=== PATIENT | female | born 1985 ===

== ENCOUNTER 2024-08-11 13:24 | Outpatient (REF) | payer MEDICAID, OTHER, SELFPAY ==
[2024-08-11 16:10] LABS: MANUAL DIFF FLAG NO
[2024-08-11 16:18] LABS: Basophils Percent Auto 0.5 % (0-2); Eosinophils Absolute Auto 0.1 X10*3/uL (0.0-0.4); Eosinophils Percent Auto 2.5 % (0-4); Hematocrit 27.8 % (37.0-47.0); Hemoglobin 8.2 g/dl (12.0-16.0); Lymphocytes Absolute Auto 1.5 X10*3/uL (1.2-4.9); Lymphocytes Percent Auto 37.5 % (20-40); Mean Corpuscular HGB Conc 29.5 g/dl (31.0-35.0); Mean Corpuscular Hemoglobin 20.4 pg (27.0-33.0); Mean Corpuscular Volume 69.3 fL (80.0-98.0); Mean Platelet Volume 10.5 fL (9.4-12.3); Monocytes Absolute Auto 0.4 X10*3/uL (0.1-1.2); Monocytes Percent Auto 9.6 % (2-11); Neutrophils Percent Auto 49.9 % (45-73); Platelet Count 335 X10*3/uL (160-400); Red Blood Count 4.01 X10*6/uL (4.20-5.50); Red Cell Distribution Width 16.1 % (11.0-16.0)
[2024-08-11 17:29] LABS: Estimated Average Glucose 108 mg/dL; Hemoglobin A1C 75.0955 umol/L; Hemoglobin A1c % 5.4 % (<6.0); Total Hemoglobin (HGBA1C) 2084.2337 umol/L
[2024-08-11 17:47] LABS: Vitamin B12 418 pg/mL (200-900)
[2024-08-11 18:00] LABS: Alanine Aminotransferase 15 U/L (0-31); Albumin Level 4.2 g/dL (3.5-5.0); Alkaline Phosphatase 84 U/L (39-117); Anion Gap 8 (12-20); Aspartate Amino Transferase 21 U/L (5-31); Bilirubin Total 0.2 mg/dL (0.0-1.0); Blood Urea Nitrogen 13 mg/dL (9-16); Calcium 8.9 mg/dL (8.4-10.2); Carbon Dioxide 24 mmol/L (22-29); Chloride 110 mmol/L (96-108); Estimated Glomerular Filt Rate > 60; Glucose Random 106 mg/dL (60-115); Magnesium 2.2 mg/dL (1.6-2.6); Potassium 3.5 mmol/L (3.3-5.1); Sodium 138 mmol/L (135-145); Total Protein 7.6 g/dL (6.5-8.0)
[2024-08-11 18:06] LABS: TSH reflex Free T4 1.44 uIU/mL (0.32-4.0)
== END 2024-08-11 13:25 | disposition home or self-care (01) ==
LOC: HO.HHCL 13:24
PROVIDERS: Visit Provider Emergency Medicine
DX: M79.671 Pain in right foot (principal); M79.672 Pain in left foot; M79.605 Pain in left leg; M79.89 Other specified soft tissue disorders; M79.604 Pain in right leg
CPT/HCPCS: 36415; 80053; 82607; 83036; 83735; 84443; 85025

== ENCOUNTER 2024-08-16 10:11 | Outpatient (REF) | payer MEDICAID, OTHER, SELFPAY ==
--- NOTE | ~2024-08-16 | US_ITS ---
EXAMINATION: US PELVIS CLINICAL INFORMATION: History of uterine fibroids. COMPARISON: None available. TECHNIQUE: Ultrasound of the pelvis is performed using both transabdominal and transvaginal transducers along with Doppler. Transvaginal imaging is performed due to inadequate visualization transabdominally. FINDINGS: Uterus: The uterus is anteverted is enlarged measuring 15.6 x 6.9 x 11.8 cm for a volume of 665 mL. The double wall endometrial thickness is 14 mm. Four (4) uterine fibroids are seen with the 2 largest in the distal body on the right and left measuring 6.3 x 4.0 x 4.8 cm and 4.9 x 4.7 x 6.1 cm respectively. Two (2) fundal fibroids are present measuring 1.3 and1.6 cm. Adnexa: Both ovaries are visualized. There is normal color flow to the adnexa. There is no ovarian torsion. There is no pelvic ascites or fluid collection. Right ovary measures 4.1 x 2.7 x 2.0 cm for a volume of 11.6 mL. Left ovary measures 4.0 x 2.0 x 2.4 cm for a volume of 10.1 mL. US/US pelvic and transvaginal IMPRESSION: Enlarged fibroid uterus. Electronically signed by: Bernabe Box MD 10/12/2024 01:06 AM VICTORINO MENDOZA
== END 2024-08-16 10:12 | disposition home or self-care (01) ==
LOC: HO.US 10:11
PROVIDERS: Visit Provider Emergency Medicine
DX: Z86.018 Personal history of other benign neoplasm (principal)
CPT/HCPCS: 76830; 76856

== ENCOUNTER 2024-10-13 15:56 | Outpatient (REF) | payer MEDICAID, OTHER, SELFPAY ==
[2024-10-16 18:59] LABS: Immunoglobulin A 271 mg/dL (47-310); Transglutaminase IgA <1.0 U/mL
== END 2024-10-13 15:57 | disposition home or self-care (01) ==
LOC: HO.HHCL 15:56
PROVIDERS: Visit Provider Nurse Practitioner Family
DX: K21.00 Gastro-esophageal reflux disease with esophagitis, without bleeding (principal)
CPT/HCPCS: 36415; 82784; 86364

== ENCOUNTER 2024-12-04 16:49 | Outpatient (REF) | payer MEDICAID, OTHER, SELFPAY ==
--- OUTSIDE RECORDS SUMMARY | 2024-12-04 20:03 | XMS_ITS | Encounter Summary ---
Author Organization [employer] [facility] Address [address] [place] [address] Care Team Providers Care Outreach Clinician Name Role Phone Rama Lieberman SAEID Primary Care Provider [phone] Encounter Details Date Type Department Care Team (Latest Contact Info) Description 11/29/2024 Travel Social History Tobacco Use Types Packs/Day Years Used Date Smoking Tobacco: Never Smokeless Tobacco: Never Depression Answer Date Recorded Patient Health Questionnaire-9 Score 5 09/15/2024 Patient Health Questionnaire-9 Score 5 09/15/2024 Last PHQ-9: Questionnaire Data Not on file 1 11/15/2023 Housing Stability Answer Date Recorded What is your housing situation today? I have ian lawrence 09/15/[address] you li ve. Do you have problems with any of the following? None of the above 09/15/2024 Food Insecurity Answer Date Recorded Within the past 12 months, y ou worried that your food would run out before you got money to buy more: Never True 09/15/2024 Within the past 12 months,th e food you bought just didn't last and you didn't have enough money to get more: Never True 06/2024 Transportation Answer Date Recorded In the past 12 months, has l ack of transportation kept you from medical appts, meetings, work or from getting things needed for daily living? No 09/15/2024 Utilities Answer Date Recorded In the past 12 months, has t he electric, gas, oil or water company threatened to shut off services in your home? No 09/15/2024 Depression Answer Date Recorded Patient Health Questionnaire-2 Score 1 09/15/2024 Internet Access Answer Date Recorded Internet Access Q1 Yes 09/15/2024 Internet Access Q2 Not on file 09/15/2024 Comments Unknown Sex and Gender Information Value Date Recorded Sex Assigned at Female 07/12/2024 10:57 AM EDT Legal Sex Female 10:14 AM EST Gender Identity Female 07/12/2024 10:57 AM EDT Sexual Orientation Straight 07/12/2024 10 :57 AM EDT documented as of this encounter Plan of Treatment Upcoming Encounters Date Type Department Care Team (Late st Contact Info) Description 02/05/2025 1:45 PM EDT Office Visit [facility] [address] [place] [address] [facility] [address] [place] [address] documented as of this encounter Visit Diagnoses Not on filedocumented in this encounter Additional Health Concerns Assessment Noted Time PHQ-9 Depression Total Score: 5 09/15/20 24 12:05 PM EST documented as of this encounter Care Teams Outreach Clinician Relationship Specialty Start Date End Date Rama Lieberman CNP [address] [place] [address] PCP - General Family Medicine 10/24/24 documented as of this encounter
--- OUTSIDE RECORDS SUMMARY | 2024-12-04 20:03 | XMS_ITS | Encounter Summary ---
Author Organization [employer] [facility] Address [address] [place] [address] Care Team Providers Care Towel Hemmer Name Role Phone Mio Refugiofawad BREAUX Primary Care Provider [phone] Reason for Visit * Reason Comments Gynecologic Exam Encounter Details Date Type Department Care Team ([facility] st Contact Info) Description 12/04/2024 11:30 AM EST Office Visit [facility] [address] [place], [place] [phone] [facility] [address] [place], [place] [phone] Fibroids (Primary Dx); Cervical mass; Vaginal discharge; Routine cervical smear Social History Tobacco Use Types Packs/Day Years Used Date Smoking Tobacco: Never Smokeless Tobacco: Never Alcohol Use Standard Drinks/Week Comments Never 0 (1 standard drink = 0.6 oz pur e alcohol) Depression Answer Date Recorded Patient Health Questionnaire-9 [...] Access Q2 Not on file 09/15/2024 Comments No Sex and Gender Information Value Date Recorded Sex Assigned at Female 07/12/2024 10:57 AM EDT Legal Sex Female 10:14 AM EST Gender Identity Female 07/12/2024 10:57 AM EDT Sexual Orientation Straight 07/12/2024 10 :57 AM EDT documented as of this encounter Last Filed Vital Signs Vital Sign Reading Time Taken Comments Blood Pressure 104/53 12/04/2024 11:35 AM EST Pulse 55 12/04/2024 11:35 AM EST Temperature 36.5 ??C (97.7 ??F) 12/04/2024 11:[address] Respiratory Rate 20 12/04/2024 11:35 AM EST Oxygen Saturation 99% 12/04/2024 11:35 AM EST Inhaled Oxygen Concentration - - Weight 55.5 kg (122 lb 6.4 oz) 12/04/2024 11:35 AM EST Height 146.3 cm (4' 9.58 ) 12/04/2024 11:[address] Body Mass Index 25.96 12/04/2024 11:35 AM EST documented in this encounter Progress Notes * [facility] - 12/04/2024 11:30 AM EST Subjective Patient ID: Natalia Correa is a 39 y.o. female who presents for fibroids Here to discuss pelvic ultrasound results. Last pap several years ago, would like full DRAF[facility] (CAD) exam today with pap. Lives with children, feels safe at home. Not sexually active in years. Pelvic ultrasound 08/2024: Uterus is anteverted is enlarged measuring 15.6 x 6.9 x 11.8 cm for a volume of 665 mL. The double wall endometrial thickness is 14 mm. Four (4) uterine fibroids are seen with the 2 largest in the distal body on the right and left measuring 6.3 x 4.0 x 4.8 cm and 4.9 x 4.7 x 6.1 cm respectively. Two (2) fundal fibroids are present measuring 1.3 and1.6 cm. Normal TSH, hemoglobin/hematocrit 8.2/27.8 in 08/2024, on Fe. Monthly menses x 3 days, uses 10 pads/daily due to bleeding. Cramping coincides with menses. Not planning in the next year. Has labs from 09/2024 that need to be drawn which include CBC. Advised her to get these done today. Review of Systems Genitourinary: Positive for menstrual problem, pelvic pain, vaginal bleeding and vaginal discharge.Negative for dyspareunia, dysuria, frequency, genital sores, hematuria, urgency and vaginal pain. No abnormal pap, no abnormal bleeding, no breast pain, no breast mass, no nipple discharge Objective BP 104/53 (BP Location: Left arm, Patient Position: Sitting, BP Cuff Size: Adult) Pulse 55 Temp 97.7 ??F (36.5 ??C) (Temporal) Resp 20 Ht 4' 9.58 (1.463 m) Wt 122 lb 6.4 oz (55.5 kg) LMP 11/19/2024 (Approximate) SpO2 99% BMI 25.96 kg/m?? Physical Exam Constitutional: Appearance: Normal appearance. Chest: Breasts: Right: Normal. No swelling, bleeding, inverted nipple, mass, nipple discharge, skin change or tenderness. Left: Normal. No swelling, bleeding, inverted nipple, mass, nipple discharge, skin change or tenderness. Genitourinary: General: Normal vulva. Labia: Right: No rash, tenderness, lesion or injury. Left: No rash, tenderness, lesion or injury. Vagina: No signs of injury and foreign body. Vaginal discharge present. No erythema, tenderness, bleeding, lesions or prolapsed vaginal bruno. Cervix: Friability, lesion and cervical bleeding present. No cervical motion tenderness, discharge,erythema or eversion. Uterus: Enlarged. Not tender. Adnexa: Right adnexa normal and left adnexa normal. Right: No mass, tenderness or fullness. Left: No mass, tenderness or fullness. Comments: 2-3cm prolapsing mass through cervix, possible polyp vs fibroid Lymphadenopathy: Upper Body: Right upper body: No supraclavicular or axillary adenopathy. Left upper body: No supraclavicular or axillary adenopathy. Neurological: Mental Status: She is alert. Psychiatric: Mood and Affect: Mood normal. Behavior: Behavior normal. Assessment/Plan Diagnoses and all orders for this visit: Fibroids Reviewed ultrasound findings, significant anemia due to menses. Reviewed hormonal treatment optionsavailable here (progestin pill, injection) or surgical options with DRAFTER CIVIL (CAD). Open to trial of progestinonly pill as this will also offer contraception if needed. Slynd sent in, start today. ACHES reviewed. Reassured, no cause for concern if no menses on this pill. Cervical mass Possible polyp vs prolapsed fibroid. Will send pap and refer to [facility] (CAD) for further evaluation after that. No mention of cervical fibroid on ultrasound. Vaginal discharge - Bacterial Vaginosis Panel - STI testing add on (NG, CT, Trich) Bacterial vaginosis swab and pap based STI testing sent. Will contact with results. Routine cervical smear - Pap Smear Cotest today, repeat 5 years if normal/HPV neg. Other orders - Drospirenone (Slynd) 4 MG tablet; Take 1 tablet by mouth Once per day. Followup 2 months, sooner as needed. documented in this encounter Plan of Treatment Upcoming Encounters Date Type Department Care Team (Late st Contact Info) Description 02/05/2025 1:45 PM EDT Office Visit [facility] [address] [place] [address] [facility] [address] [place] [address] Scheduled Orders Name Type Priority Associated Diagnoses Order Schedule Bacterial Vaginosis Panel Microbiology Routine Vaginal discharge Ordered: 12/04/2024 Pap Smear Pathology and Cytology Routine Routine cervical smear Ordered: 12/04/2024 STI testing add on (NG, CT, Trich) Pathology and Cytology Routine Vaginal discharge Ordered: 12/04/2024 documented as of this encounter Visit Diagnoses Diagnosis Fibroids- Primary Leiomyoma of uterus, unspecified Cervical mass Other specified noninflammatory disorder of cervix Vaginal discharge Leukorrhea, not specified as infective Routine cervical smear Screening for malignant neoplasm of the cervix documented in this encounter Additional Health Concerns Assessment Noted Time PHQ-9 Depression Total Score: 5 09/15/20 24 12:05 PM EST documented as of this encounter Care Teams Towel Hemmer Relationship Specialty Start Date End Date Rama Lieberman CNP [address] [place] [id number] PCP - General Family Medicine 10/24/24 documented as of this encounter
--- OUTSIDE RECORDS SUMMARY | 2024-12-04 20:03 | XMS_ITS | Clinical Summary ---
Author Organization [employer] Address [address] [place] [address] Care Team Providers Care Wash Oil Pump Operator Helper Name Role Phone Mio Rama SAEID Primary Care Provider [phone] Allergies No known active allergies Medications acetaminophen (Tylenol) 500 MG tablet Take 2 tablets (1,000 mg) by mouth every 6 (six) hours if needed for moderate pain or fever for up to 25 doses. 40 tablet 4 Active pantoprazole (Protonix) 40 MG EC tabletIndication s:Gastroesophage al reflux disease, unspecified whether esophagitis present Take 1 tablet (40 mg) by mouth before breakfast. Do not crush, chew, or split. 30 tablet 11 4 08/09/20 25 Active famotidine (Pepcid) 20 MG tabletIndication s:Gastroesophage al reflux disease, unspecified whether esophagitis present Take 1 tablet (20 mg) by mouth 2 times daily. 60 tablet 11 4 09/15/20 25 Active Ferrous Sulfate ER 45 MG tablet controlled-relea se Take 1 tablet (45 mg) by mouth Once per day. 90 tablet 4 01/12/20 25 Active Drospirenone (Slynd) 4 MG tablet Take 1 tablet by mouth Once per day. 28 tablet 11 5 Active Active Problems Problem Noted Date Diagnosed Date Bloating 10/13/2024 Assessment & Plan (10/14/2024 1:04 PM EST): Pt has been avoiding bread, celiacs panel ordered Iron deficiency anemia 08/09/2024 Assessment & Plan (10/14/2024 1:04 PM EST): Hx of GI bleed and menorrhagia secondary to fibroid uterus, Referral to heating and refrigeration inspector for potential management options Iron rx changed to ER Labs as ordered below Assessment & Plan (09/15/2024 2:09 PM EST): Physical exam wnl, POCT Hgb 10.1 Plan to continue with iron supplements Encouraged patient to take pills with vitamin c food sources to help with absorption Reordered CBC and ordered IFBOT to monitor for active bleeding and to trend H/H. Assessment & Plan (08/11/2024 5:32 PM EDT): HgB severely low at 7.3 on POCT today (this may overestimate the degree of anemia, so strongly urged to go to lab to complete blood work) Patient does report hx of anemia last time she [place] Plan to start Ferrous Gluconate 324 mg 2x daily Referral to Hematology Placed Educated pt about possibility of iron infusion therapy Educated pt about iron rich food sources GERD (gastroesophageal reflux disease) Assessment & Plan (10/14/2024 1:03 PM EST): Continue current regimen, unfortunately pt is unable to see specialist due to transportation Symptoms gradually improving, labs as ordered below Follow up in 1 months sooner prn Avoid nsaids Assessment & Plan (09/15/2024 2:15 PM EST): Continue on Protonix for next 4 weeks for reflux Plan to take famotidine 20 mg BID and Mag- Al 20mL q 6 hours PRN for reflux Referral placed to GI today for endoscopy, did refer at last visit however patient denies getting any contact from GI to set up appointment. In the meantime, plan to obtain ESR/CRP to r/o IBD and HIV to r/o viral cause. Considered H. Pylori etiology, however will not obtain UBT at this time d/t absence of abdominal pain and abdominal distention, n/v/d. Will consider in the future if all ordered tests neg. Patient will f/u with me in 1 month to assess response to therapy and to ensure establishment with GI. Assessment & Plan (08/09/2024 4:46 PM EDT): Referral to GI placed Plan to start pt on Protonix and Maalox History of uterine fibroid 07/12/2024 Assessment & Plan (10/14/2024 1:05 PM EST): Reviewed findings and potential management options Referred to heating and refrigeration inspector Assessment & Plan (08/11/2024 5:31 PM EDT): Pt educated about the possibility of menstrual suppression or lightening of periods as a means to treat heavy menstrual bleeding, contributing to anemia Will revisit this possibility in followup Resolved Problems Problem Noted Date Diagnosed Date Resolved Date Gastritis 08/09/2024 08/09/2024 Encounters Date Type Department Care Team Description 12/04/2024 11:30 AM EST Office Visit [address] [address] [facility] Fibroids (Primary Dx); Cervical mass; Vaginal discharge; Routine cervical smear 11/29/2024 Travel 10/13/2024 2:30 PM EST Office Visit [address] [address] Rita Hathaway NP Gastroesophageal reflux disease with esophagitis, unspecified whether hemorrhage (Primary Dx); Bloating; History of uterine fibroid; Iron deficiency anemia, unspecified iron deficiency anemia type 10/13/2024 Telephone [facility] [address] [place] [phone] Kaylynn Payne, CRISTI Results 10/12/2024 Telephone [facility] [address] [place] [phone] Kaylynn Payne, CRISTI Results 10/10/[address] [address] Katerine Rico [place] Chart Prep 09/19/[address] [address] Aldo De Los Santos [place] azucena recall 09/19/2024 Travel 09/15/2024 11:15 AM EST Office Visit [address] [address] Lieberman, Alexxis, SHOP SERVICE TECHNICIAN Iron deficiency anemia, unspecified iron deficiency anemia type (Primary Dx); Gastroesophageal reflux disease, unspecified whether esophagitis present from Last 3 Months Social History Tobacco Use Types Packs/Day Years Used Date Smoking Tobacco: Never Smokeless Tobacco: Never Tobacco Cessation:Counseling Given: Not Answered Alcohol Use Standard Drinks/Week Comments Never 0 [...] Orientation Straight 07/12/2024 10 :57 AM EDT Last Filed Vital Signs Vital Sign Reading [...] Mass Index 25.96 12/04/2024 11:35 AM EST Plan of Treatment Upcoming Encounters Date Type Department Care Team (Late st Contact Info) Description 02/05/2025 1:45 PM EDT Office Visit [facility] [address], [place] [phone] [facility], ZEHRA [address], [place] [phone] Health Maintenance Due Date Last Done Comments HIV Screening 1985 Hepatitis C Screening 2003 DTaP/Tdap/Td Vaccines (1 - Tdap) 2004 Hepatitis B Vaccines (1 of 3 - 19+ 3-dose series) 2004 Pap Smear 2006 Cervical Cancer Screening 2015 HPV/Cotest 2015 COVID-19 Vaccine ( - 2023-2 5 season) 2024 Influenza Vaccine (#1) 2024 Depression Screening 09/15/2025 09/15/2024, 09/15/2024 SDOH Screening 09/15/2025 09/15/2024 Alcohol/Substance Use Screening 10/13/2025 10/13/2024 Tobacco Screening 10/13/2025 10/13/2024 Family Planning (PISQ) 12/04/2025 12/04/2024 Zoster Vaccines (1 of 2) 2035 RSV Patients and Patients Aged 60 years or older (1 - 1-dose 75+ series) 2060 HIB Vaccines Aged Out No longer eligi ble based on patient's age to complete this topic HPV Vaccines Aged Out No longer eligi ble based on patient's age to complete this topic Hepatitis A Vaccines Aged Out No long er eligible based on patient's age to complete this topic IPV Vaccines Aged Out No longer eligi ble based on patient's age to complete this topic Meningococcal Vaccine Aged Out No jack shane eligible based on patient's age to complete this topic Pneumococcal Vaccine: Pediatrics (0 to 5 Years) and At-Risk Patients (6 to 64 Years) Aged Out No longer eligible b ased on patient's age to complete this topic RSV under 20 months Aged Out No longe r eligible based on patient's age to complete this topic Rotavirus Vaccines Aged Out No longer eligible based on patient's age to complete this topic Procedures Procedure Name Priority Date/Time Associated Diagnosis Comments CELIAC DISEASE COMPREHENSIVE PANEL Routine 10/13/2024 3:57 PM EST Gastroesophageal reflux disease with esophagitis, unspecified whether hemorrhage from Last 3 Months Results * Celiac Disease Comprehensive Panel (10/13/2024 3:57 PM EST) Immunoglobulin A 271 47 - 310 mg/dL [facility] Comment:THIS TEST WAS PERFOR MED AT:[id number] [place] [id number] FRY MD Transglutaminase IgA <1.0 U/mL [facility] Comment:Value Interpretation ----- <15.0 Antibody not detected> or = 15.0 Antibody detected Interpretation SEE NOTE [facility] Comment:No serological evide nce of celiac disease.tTG IgA may normalize in individuals with celiac diseasewho maintain a gluten-free diet. Consider HLA DQ2 andDQ8 testing to rule out celiac disease. Celiac diseaseis extremely rare in the absence of DQ2 or DQ8. Blood Venous blood specimen / Unknown 10/13/2024 3:57 PM EST 10/13/2024 5:39 PM EST us Rita Hathaway NP LAB BLOOD ORDERABLES Final Resul t [facility] [address] [place] [phone] from Last 3 Months Insurance [facility] HSN FULL Care Teams Wash Oil Pump Operator Helper Relationship Specialty Start Date End Date Rama Lieberman CNP [address] [place] [phone] PCP - General Family Medicine 10/24/24
[2024-12-05 11:49] LABS: Bacterial Vaginosis PCR POSITIVE (Negative); Candida Group PCR DETECTED (Not Detect); Candida glab krusei PCR NOT DETECTED (Not Detect); Trichomonas vaginalis PCR NOT DETECTED (Not Detect)
[2024-12-10 01:58] LABS: C. trachomatis RNA TMA Not Detected (Not Detected); N. gonorrhoeae RNA TMA Not Detected (Not Detected); Trichomonas (NAAT) Not Detected (Not Detected)
== END 2024-12-04 16:50 | disposition home or self-care (01) ==
LOC: HO.HHCLNP 16:49
PROVIDERS: Visit Provider Advanced Practice Midwife
DX: N89.8 Other specified noninflammatory disorders of vagina (principal)
CPT/HCPCS: 81515; 87491; 87591; 87626; 87661; 88175

== ENCOUNTER 2025-04-17 17:53 | Outpatient (REF) | payer MEDICAID, OTHER, SELFPAY | END 2025-04-17 17:54 | disposition home or self-care (01) | LOC: HO.HHCLNP 17:53 | PROVIDERS: Visit Provider Advanced Practice Midwife | DX: R30.0 Dysuria (principal) | CPT/HCPCS: 87086 ==

== ENCOUNTER 2025-05-04 14:41 | Outpatient (REF) | payer MEDICAID, OTHER, SELFPAY ==
--- OUTSIDE RECORDS SUMMARY | 2025-05-04 14:00 | XMS_ITS | Encounter Summary ---
Author Organization [employer] Address [address] [place] [address] Care Team Providers Care River Pilot Name Role Phone Rama Lieberman CNP Primary Care Provider [phone] Encounter Details Date Type Department Care Team (Latest Contact Info) Description 05/04/2025 2:00 PM EDT Office Visit [facility] [address] [place], [place] [phone] Rama Lieberman CNP [address] [place], [place] [phone] Venous insufficiency (Primary Dx); Neuropathy Social History Tobacco Use Types Packs/Day Years [...] Sign Reading Time Taken Comments Blood Pressure 116/56 05/04/2025 1:56 PM EDT Pulse 65 05/04/2025 1:56 PM EDT Temperature 36.4 C (97.6 F) 05/04/2025 1:56 PM EDT Respiratory Rate 12 05/04/2025 1:56 PM EDT Oxygen Saturation 99% 05/04/2025 1:56 PM EDT Inhaled Oxygen Concentration - - Weight 55.2 kg (121 lb 12.8 oz) 05/04/2025 1:56 PM EDT Height 148 cm (4' 10.27 ) 05/04/2025 1:56 PM EDT Body Mass Index 25.22 05/04/2025 1:56 PM EDT documented in this encounter Plan of Treatment Upcoming Encounters Date Type Department Care Team (Late st Contact Info) Description 07/23/2025 2:00 PM EDT Office Visit [facility] [address] [place] [address] [facility] [address] [place] [address] documented as of this encounter Visit Diagnoses Diagnosis Venous insufficiency- Primary Unspecified venous (peripheral) insufficiency Neuropathy Mononeuritis of unspecified site documented in this encounter Additional Health Concerns Assessment Noted Time PHQ-9 Depression Total Score: 5 09/15/20 24 12:05 PM EST documented as of this encounter Care Teams River Pilot Relationship Specialty Start Date End Date Rama Lieberman CNP [address] [place] [address] PCP - General Family Medicine 10/24/24 documented as of this encounter
[2025-05-04 16:34] LABS: Hematocrit 31.5 % (37.0-47.0); Hemoglobin 9.7 g/dl (12.0-16.0); Mean Corpuscular HGB Conc 30.8 g/dl (31.0-35.0); Mean Corpuscular Hemoglobin 24.8 pg (27.0-33.0); Mean Corpuscular Volume 80.6 fL (80.0-98.0); Mean Platelet Volume 11.4 fL (9.4-12.3); Platelet Count 243 X10*3/uL (160-400); Red Blood Count 3.91 X10*6/uL (4.20-5.50); White Blood Count 3.6 X10*3/uL (4.8-10.8)
[2025-05-04 16:51] LABS: Alanine Aminotransferase 14 U/L (0-31); Albumin Level 4.2 g/dL (3.5-5.0); Alkaline Phosphatase 79 U/L (39-117); Anion Gap 9 (12-20); Aspartate Amino Transferase 24 U/L (5-31); Bilirubin Total 0.2 mg/dL (0.0-1.0); Blood Urea Nitrogen 9 mg/dL (9-16); C Reactive Protein < 0.04 mg/dL (< or = 0.50); Calcium 8.8 mg/dL (8.4-10.2); Carbon Dioxide 24 mmol/L (22-29); Chloride 111 mmol/L (96-108); Estimated Glomerular Filt Rate > 60; Glucose Random 87 mg/dL (60-115); Potassium 3.7 mmol/L (3.3-5.1); Sodium 140 mmol/L (135-145); Total Protein 6.9 g/dL (6.5-8.0)
[2025-05-04 17:23] LABS: Erythrocyte Sedimentation Rate 7 MM/HR (0-20)
[2025-05-04 17:32] LABS: Eosinophils Percent Manual 1 % (0-4); Lymphocytes Absolute Manual 1.1 X10*3/uL (1.2-4.9); Lymphocytes Percent Manual 31 % (20-40); Monocytes Absolute Manual 0.2 X10*3/uL (0.1-1.2); Monocytes Percent Manual 6 % (2-11); Neutrophils Percent Manual 62 % (45-73)
[2025-05-04 17:33] LABS: Band Neutrophils Percent 0 % (3-5); Neutrophils Absolute Manual 2.2 X10*3/uL (2.0-8.3)
[2025-05-04 17:35] LABS: Burr Cells 1+ (0-2) /OIF; Ovalocytes 1+ (5-14) /OIF; Platelet Estimate NORMAL (NORMAL); Platelet Morphology Comment NORMAL; RBC Morphology NOTED; Schistocytes 1+ (0-2) /OIF
[2025-05-05 09:41] LABS: HIV AB/AG Nonreactive (Nonreactive); HIV Num 1 0.08 S/CO (0.00-0.99)
== END 2025-05-04 14:42 | disposition home or self-care (01) ==
LOC: HO.HHCL 14:41
PROVIDERS: Nurse Practitioner Family; Visit Provider Advanced Practice Midwife
DX: Z11.4 Encounter for screening for human immunodeficiency virus [HIV] (principal); D50.9 Iron deficiency anemia, unspecified
CPT/HCPCS: 36415; 80053; 85007; 85025; 85027; 85652; 86140; 87389

== ENCOUNTER 2025-07-19 14:07 | Outpatient (REF) | payer MEDICAID, SELFPAY ==
--- OUTSIDE RECORDS SUMMARY | 2025-07-19 13:00 | XMS_ITS | Encounter Summary ---
Author Organization [employer] [facility] Address [address] [place] [address] Care Team Providers Care Interactive Art Director Name Role Phone César Lieberman CNP Primary Care Provider [phone] Reason for Referral * Consultation (Routine) - Pending Review Specialty Diagnoses / Procedures Referred By Roberto horton Referred To Contact Gastroenterology Diagnoses Gastroesophageal reflux disease with esophagitis, unspecified whether hemorrhage César Lieberman CNP [address] [place] [address] Phone: tel: fax: Referral ID Status Reason Start Date Expiration Date Visits Requested Visits Authorized [id number] Pending Review Specialty Services Required 07/19/2025 07/19/2026 1 1 Reason for Visit * Reason Comments Annual Exam Encounter Details Date Type Department Care Team (Late st Contact Info) Description 07/19/2025 1:00 PM EDT Office Visit [facility] [address], [place] [phone] César Lieberman CNP [address] [place] [address] Encounter for physical examination (Primary Dx); Gastroesophageal reflux disease with esophagitis, unspecified whether hemorrhage; Acne vulgaris; Menorrhagia with regular cycle; Seborrheic dermatitis of scalp; Iron deficiency anemia, unspecified iron deficiency anemia type; Gastroesophageal reflux disease, unspecified whether esophagitis present Social History Tobacco Use Types Packs/Day Years [...] from getting things needed for daily living? Yes, it has kept me from medical appointments or getting medications. 07/12/2025 Utilities Answer Date Recorded In the past [...] Sign Reading Time Taken Comments Blood Pressure 118/62 07/19/2025 1:34 PM EDT Pulse 58 07/19/2025 1:34 PM EDT Temperature 36.8 C (98.2 F) 07/19/2025 1:34 PM EDT Respiratory Rate 14 07/19/2025 1:34 PM EDT Oxygen Saturation 99% 07/19/2025 1:34 PM EDT Inhaled Oxygen Concentration - - Weight 54 kg (119 lb) 07/19/2025 1:34 PM EDT Height 146.1 cm (4' 9.5 ) 07/19/2025 1:34 PM EDT Body Mass Index 25.31 07/19/2025 1:34 PM EDT documented in this encounter Progress Notes * César Lieberman CNP - 07/19/2025 1:00 PM EDT Subjective: Natalia Correa is a 39 y.o. female who presents to the office for a physical exam. Interim history: RENEE 04/2025 for menorrhagia with regular menses cycle. Pt has known fibroids and possible prolapsed cervical fibroid vs. Polyp on previous exam. 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. Pt RENEE with [facility]annon 04/17/25-she was started on slynd. CBC also ordered to evaluate anemia. Plan was to also work with referrals specialist to see if she can be seen for RELAY ADJUSTER care at [facility]. Current concerns: Needs to establish care with heme for anemia- [facility] appt pending Needs to establish care with RELAY ADJUSTER for colpo and surg consult for fibroid removal- [facility] appt pending Acne/ yissel dermatitis of scalp, reports started since starting OCP. Health maintenance -needs colpo -IMMs: covid, flu, Hep B, HPV Recent Labs iron studies still pending Lab Results Component Value Date WBC 3.6 (L) 05/04/2025 HGB 9.7 (L) 05/04/2025 HCT 31.5 (L) 05/04/2025 MCV 80.6 05/04/2025 PLT 243 05/04/2025 Lab Results Component Value Date GLUCOSE 87 05/04/2025 NA 140 05/04/2025 K 3.7 05/04/2025 CO2 24 05/04/2025 CL 111 (H) 05/04/2025 BUN 9 05/04/2025 CREATININE 0.49 (L) 05/04/2025 Chronic conditions GERD On protonix and pepcid for sx. Denies having these meds on hand needs refills. Reports some nausea and some sore throat that comes and goes. Anemia On daily oral iron Labs are still pending Appt to heme at [facility] is pending Problem List[1] Surgical History[2] Family History[3] Social History Living situation: Has housing, living in [place]. Employment/Education: Diet/exercise: reports she is eating well, using the bathroom regularly. Substance use: none Sexual activity: not currently Contraception: Slynd, happy with method and amenorrheic with method Mental health: Patient Health Questionnaire-9 Score: 5 (09/15/2024 12:05 PM) Patient Health Questionnaire-2 Score: 1 (09/15/2024 12:05 PM) Thoughts that you would be better off or hurting yourself in some way: Not at all (09/15/2024 12:05 PM) SAM-7 Total Score: 0 (09/15/2024 12:05 PM) Allergies[4] Review of Systems Constitutional: Positive for fatigue. Negative for activity change, appetite change, chills, diaphoresis and fever. Respiratory: Negative for choking, shortness of breath and wheezing. Cardiovascular: Negative for chest pain and palpitations. Gastrointestinal: Positive for nausea. Negative for abdominal distention, abdominal pain, blood in stool, constipation, diarrhea and vomiting. Endocrine: Negative. Genitourinary: Positive for pelvic pain. Negative for menstrual problem, vaginal bleeding, vaginal discharge and vaginal pain. Musculoskeletal: Negative. Neurological: Negative. Psychiatric/Behavioral: Negative. Vitals: 07/19/25 1334 BP: 118/62 BP Location: Left arm Patient Position: Sitting BP Cuff Size: Adult Pulse: 58 Resp: 14 Temp: 98.2 ??F (36.8 ??C) TempSrc: Oral SpO2: 99% Weight: 119 lb (54 kg) Height: 4' 9.5 (1.461 m) Physical Exam Constitutional: General: She is not in acute distress. Appearance: Normal appearance. She is not ill-appearing. HENT: Head: Normocephalic and atraumatic. Right Ear: Tympanic membrane, ear canal and external ear normal. There is no impacted cerumen. Left Ear: Tympanic membrane, ear canal and external ear normal. There is no impacted cerumen. Nose: No congestion or rhinorrhea. Mouth/Throat: Mouth: Mucous membranes are moist. Pharynx: No oropharyngeal exudate or posterior oropharyngeal erythema. Eyes: General: No scleral icterus. Right eye: No discharge. Left eye: No discharge. Extraocular Movements: Extraocular movements intact. Pupils: Pupils are equal, round, and reactive to light. Cardiovascular: Rate and Rhythm: Normal rate and regular rhythm. Pulses: Normal pulses. Heart sounds: Normal heart sounds. No murmur heard. No friction rub. No gallop. Pulmonary: Effort: Pulmonary effort is normal. No respiratory distress. Breath sounds: Normal breath sounds. No stridor. No wheezing, rhonchi or rales. Chest: Chest wall: No tenderness. Abdominal: General: Abdomen is flat. Bowel sounds are normal. There is no distension. Palpations: Abdomen is soft. There is no mass. Tenderness: There is no abdominal tenderness. There is no guarding. Comments: +diffuse tenderness in pelvic area Musculoskeletal: General: Normal range of motion. Cervical back: Normal range of motion and neck supple. No tenderness. Right lower leg: No edema. Left lower leg: No edema. Lymphadenopathy: Cervical: No cervical adenopathy. Skin: General: Skin is warm and dry. Capillary Refill: Capillary refill takes less than 2 seconds. Neurological: General: No focal deficit present. Mental Status: She is alert and oriented to person, place, and time. Psychiatric: Mood and Affect: Mood normal. Behavior: Behavior normal. Thought Content: Thought content normal. Judgment: Judgment normal. Assessment & Plan Encounter for physical examination Exam showed no acute abnormalities today Chronic meds filled Lab studies ordered and instructed to complete Anticipatory guidance provided Also recommended meeting with software engineer advisor at [facility] at next appt to discuss questions about insurance Routine Screening and Health Maintenance Optometry: No will place appointment request today Dentist: No pt will request appt in person at [facility] ASCVD risk: 39 y.o. female pending labs Lab Review: orders written for new lab studies as appropriate; see orders Imms: declined today d/t time constraints and transportation Routine Cancer Screening Breast CA: due 09/2025 Cervical CA: last pap 11/2024, ASCUS HPV Pos. To have colpo Colon CA: n/a Lung CA: n/a Orders: CBC auto differential; Future Comprehensive Metabolic Panel; Future Hepatitis C Antibody with Reflex to HCV, RNA, Quantitative, Real-Time PCR; Future Gastroesophageal reflux disease with esophagitis, unspecified whether hemorrhage - Initiate a new referral for gastroenterology due to ongoing reflux symptoms, with scheduling preference at [facility] for insurance compatibility. - Refill two previously prescribed stomach medications, including Protonix to be taken in the morning on an empty stomach to suppress gastric acid and alleviate reflux symptoms. - Prescribe nausea medication to be taken as needed for episodes of nausea, not required for daily use. Orders: Referral to Gastroenterology; Future Acne vulgaris BP wash prescribed with instructions for use Orders: benzoyl peroxide 10 % gel; Apply topically Once per day. 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 Seborrheic dermatitis of scalp Ketoconazole shampoo prescribed with instructions for use Orders: ketoconazole (NIZOral) 2 % shampoo; Apply to scalp 2 times a week. Iron deficiency anemia, unspecified iron deficiency anemia type - Order blood work to assess anemia status and determine if it is contributing to fatigue. -continue on oral iron supplement -referral information for [facility] hematology given to pt with instructions for scheduling appt. [1] Patient Active Problem List Diagnosis History of uterine fibroid Iron deficiency anemia GERD (gastroesophageal reflux disease) Bloating [2] No past surgical history on file. [3] No family history on file. [4] No Known Allergies documented in this encounter Miscellaneous Notes * Assessment & Plan Note - César Lieberman CNP - 07/19/2025 1:00 PM EDT Associated Problem(s): GERD (gastroesophageal reflux disease) - Initiate a new referral for gastroenterology due to ongoing reflux symptoms, with scheduling preference at [facility] for insurance compatibility. - Refill two previously prescribed stomach medications, including Protonix to be taken in the morning on an empty stomach to suppress gastric acid and alleviate reflux symptoms. - Prescribe nausea medication to be taken as needed for episodes of nausea, not required for daily use. Orders: Referral to Gastroenterology; Future * Assessment & Plan Note - César Lieberman CNP - 07/19/2025 1:00 PM EDT Associated Problem(s): Iron deficiency anemia - Order blood work to assess anemia status and determine if it is contributing to fatigue. -continue on oral iron supplement -referral information for [facility] hematology given to pt with instructions for scheduling appt. * Addendum Note - César Lieberman CNP - 07/19/2025 1:00 PM EDTAddended by: CÉSAR LIEBERMAN on: 07/19/2025 02:51 PM Modules accepted: Orders documented in this encounter Plan of Treatment Upcoming Encounters Date Type Department Care Team (Late st Contact Info) Description 07/23/2025 2:00 PM EDT Office Visit [facility] MEDIC[facility] [address] [place] [address] [facility] [address] [place] [address] Scheduled Orders Name Type Priority Associated Diagnoses Orde r Schedule Comprehensive Metabolic Panel Lab Routine Encounter for physical examination Expected: 07/19/2025 (Approximate), Expires: 07/19/2026 Hepatitis C Antibody with Reflex to HCV, RNA, Quantitative, Real-Time PCR Lab Routine Encounter for physical examination Expected: 07/19/2025, Expires: 07/19/2026 Scheduled Referrals Name Type Priority Associated Diagnoses Order Schedule Referral to Gastroenterology Outpatient Referral Routine Gastroesophageal reflux disease with esophagitis, unspecified whether hemorrhage Expected: 07/19/2025 (Approximate), Expires: 07/19/2026 documented as of this encounter Procedures Procedure Name Priority Date/Time Associated Diagnosis Comments CBC WITH AUTO DIFFERENTIAL Routine 07/19/2025 2:09 PM EDT Encounter for physical examination documented in this encounter Results * (ABNORMAL) CBC auto differential (07/19/2025 2:09 PM EDT) White Blood Count 4.4(L) 4.8 - 10.8 X10*3/uL [facility] Red Blood Count 4.13(L) 4.20 - 5.50 X10*6/uL [facility] Hemoglobin 11.9(L) 12.0 - 16.0 g/dl [facility] Hematocrit 35.9(L) 37.0 - 47.0 % [facility] Mean Corpuscular Volume 86.9 80.0 - 98.0 fL [facility] Mean Corpuscular Hemoglobin 28.8 27.0 - 33.0 pg [facility] Mean Corpuscular HGB Conc 33.1 31.0 - 35.0 g/dl [facility] Red Cell Distribution Width 14.6 11.0 - 16.0 % [facility] Platelet Count 265 160 - 400 X10*3/uL [facility] Mean Platelet Volume 10.7 9.4 - 12.3 fL [facility] Neutrophils Percent Auto 50.1 45 - 73 % [facility] Imm Gran Pct Auto 0.2 0.0 - 0.4 % [facility] Lymphocytes Percent Auto 37.4 20 - 40 % [facility] Monocytes Percent Auto 9.3 2 - 11 % [facility] Eosinophils Percent Auto 2.5 0 - 4 % [facility] Basophils Percent Auto 0.5 0 - 2 % [facility] NRBC Pct Auto 0.0 0.0 - 0.2 /100WBC [facility] Neutrophils Absolute Auto 2.2 2.0 - 8.3 x10*3/uL [facility] Imm Gran Abs Auto 0.01 0.00 - 0.03 X10*3/uL [facility] Lymphocytes Absolute Auto 1.6 1.2 - 4.9 X10*3/uL [facility] Monocytes Absolute Auto 0.4 0.1 - 1.2 X10*3/uL [facility] Eosinophils Absolute Auto 0.1 0.0 - 0.4 X10*3/uL [facility] Basophils Absolute Auto 0.0 0.0 - 0.2 X10*3/uL [facility] NRBC Abs Auto 0.000 0.0 - 0.012 X10*3/uL [facility] Blood Venous blood specimen / Unknown 07/19/2025 2:09 PM EDT 07/19/2025 5:29 PM EDT César Lieberman [facility] BLOOD ORDERABLES Oanh l Result [facility] [address] [place] [phone] documented in this encounter Visit Diagnoses Diagnosis Encounter for physical examination- Primary Gastroesophageal reflux disease with esophagitis, unspecified whether hemorrhage Acne vulgaris Other acne Menorrhagia with regular cycle Seborrheic dermatitis of scalp Other seborrheic dermatitis Iron deficiency anemia, unspecified iron deficiency anemia type Gastroesophageal reflux disease, unspecified whether esophagitis present documented in this encounter Additional Health Concerns Assessment Noted Time PHQ-9 Depression Total Score: 5 09/15/20 24 12:05 PM EST documented as of this encounter Care Teams Interactive Art Director Relationship Specialty Start Date End Date César Lieberman CNP [address] [place] [address] PCP - General Family Medicine 10/24/24 documented as of this encounter
[2025-07-19 17:32] LABS: MANUAL DIFF FLAG NO
[2025-07-19 17:41] LABS: Hematocrit 35.9 % (37.0-47.0); Hemoglobin 11.9 g/dl (12.0-16.0); Imm Gran Abs Auto 0.01 X10*3/uL (0.00-0.03); Imm Gran Pct Auto 0.2 % (0.0-0.4); Lymphocytes Absolute Auto 1.6 X10*3/uL (1.2-4.9); Mean Corpuscular HGB Conc 33.1 g/dl (31.0-35.0); Mean Corpuscular Hemoglobin 28.8 pg (27.0-33.0); Mean Corpuscular Volume 86.9 fL (80.0-98.0); NRBC Abs Auto 0.000 X10*3/uL (0.0-0.012); NRBC Pct Auto 0.0 /100WBC (0.0-0.2); Platelet Count 265 X10*3/uL (160-400); Red Blood Count 4.13 X10*6/uL (4.20-5.50); White Blood Count 4.4 X10*3/uL (4.8-10.8)
[2025-07-19 17:53] LABS: Hemoglobin A1C 115.2973 umol/L; Total Hemoglobin (HGBA1C) 3064.0082 umol/L
--- OUTSIDE RECORDS SUMMARY | 2025-07-19 17:55 | XMS_ITS | Encounter Summary ---
Author Organization [facility] Address [address] [place] [address] Care Team Providers Care Library Associate Name Role Phone Rama Lieberman SAEID Primary Care Provider [phone] Encounter Details Date Type Department Care Team (Latest Contact Info) Description 07/19/2025 Travel Social History Tobacco Use Types Packs/Day [...] Description 07/23/2025 2:00 PM EDT Office Visit [facility] [address] [place] [address] [facility] [address] [place], [place] [phone] documented as of this encounter Visit Diagnoses Not on filedocumented in this encounter Additional Health Concerns Assessment Noted Time PHQ-9 Depression Total Score: 5 09/15/20 24 12:05 PM EST documented as of this encounter Care Teams Library Associate Relationship Specialty Start Date End Date Rama Lieberman CNP [address] [place], [place] [phone] PCP - General Family Medicine 10/24/24 documented as of this encounter
--- OUTSIDE RECORDS SUMMARY | 2025-07-19 17:55 | XMS_ITS | Encounter Summary ---
Author Organization [employer] Address [address] [place] [address] Care Team Providers Care [facility] Name Role Phone Mio Refugiofawad BREAUX Primary Care Provider [phone] Reason for Visit * Reason Comments Med Refill Encounter Details Date Type Department Care Team ([facility] st Contact Info) Description 07/02/2025 Refill [facility] [address], [place] [phone] [facility] [address], [place] [phone] Social History Tobacco Use Types Packs/Day Years [...] Description 07/23/2025 2:00 PM EDT Office Visit [facility] MED[facility]INE [address] [place] [id number] [facility] [address] [place] [address] documented as of this encounter Visit Diagnoses Not on filedocumented in this encounter Additional Health Concerns Assessment Noted Time PHQ-9 Depression Total Score: 5 09/15/20 24 12:05 PM EST documented as of this encounter Care Teams [facility] Relationship Specialty Start Date End Date Rama Lieberman CNP [address] [place] [address] PCP - General Family Medicine 10/24/24 documented as of this encounter
--- OUTSIDE RECORDS SUMMARY | 2025-07-19 17:55 | XMS_ITS | Clinical Summary ---
Author Organization [employer] Address [address] [facility] [address] [place] [address] Care Team Providers Care Revenue Analyst Name Role Phone Rama Lieberman SAEID Primary Care Provider [phone] Allergies No known active allergies Medications acetaminophen (Tylenol) 500 MG tablet Take 2 tablets (1,000 mg) by mouth every 6 (six) hours if needed for moderate pain or fever for up to 25 doses. 40 tablet 07/12/20 24 Active Drospirenone (Slynd) 4 MG tablet Take 1 tablet by mouth Once per day. 28 tablet 04/17/20 25 Active gabapentin (Neurontin) 100 MG capsuleIndicati ons:Neuropathy Take 1 capsule (100 mg) by mouth at bedtime. 30 capsule 3 05/04/20 25 026 Active ferrous sulfate (Fe Tabs) 325 (65 Fe) MG EC tabletIndicatio ns:Iron deficiency Take 1 tablet (325 mg) by mouth with breakfast. Do not crush, chew, or split. 30 tablet 05/07/20 25 026 Active Gaviscon Extra Strength 254-237.5 MG/5ML suspensionIndic ations:Gastro-e sophageal reflux disease without esophagitis TAKE 10 ML BY MOUTH EVERY DAY NEEDED FOR HEARTBURN 355 mL 1 06/21/20 25 Active Mary Jane-Lanta 200-200-20 MG/5ML oral suspension TAKE 20 ML BY MOUTH EVERY 6 HOURS NEEDED FOR HEARTBURN FOR UP TO 10 DAYS 09/18/20 24 Active fluconazole (Diflucan) 150 MG tablet Take 1 tablet by mouth Once per day. 12/05/19 25 Active famotidine (Pepcid) 20 MG tabletIndicatio ns:Gastroesopha geal reflux disease, unspecified whether esophagitis present Take 1 tablet (20 mg) by mouth 2 times daily. 60 tablet 11 07/19/20 25 026 Active pantoprazole (Protonix) 40 MG EC tabletIndicatio ns:Gastroesopha geal reflux disease, unspecified whether esophagitis present Take 1 tablet (40 mg) by mouth before breakfast. Do not crush, chew, or split. 30 tablet 11 07/19/20 25 026 Active ondansetron (Zofran) 4 MG tabletIndicatio ns:Gastroesopha geal reflux disease, unspecified whether esophagitis present Take 2 tablets (8 mg) by mouth every 8 (eight) hours if needed for nausea or vomiting for up to 7 days. 20 tablet 07/19/20 25 025 Active benzoyl peroxide 10 % gelIndications: Acne vulgaris Apply topically Once per day. 90 g 1 07/19/20 026 Active ketoconazole (NIZOral) 2 % shampooIndicati ons:Seborrheic dermatitis of scalp Apply to scalp 2 times a week. 120 mL 07/19/20 25 Active pantoprazole (Protonix) 40 MG EC tabletIndicatio ns:Gastroesopha geal reflux disease, unspecified whether esophagitis present Take 1 tablet (40 mg) by mouth before breakfast. Do not crush, chew, or split. 30 tablet 11 08/09/20 24 025 Discontinued(Re order (will not trigger notification to Pharmacy)) famotidine (Pepcid) 20 MG tabletIndicatio ns:Gastroesopha geal reflux disease, unspecified whether esophagitis present Take 1 tablet (20 mg) by mouth 2 times daily. 60 tablet 11 09/15/20 24 025 Discontinued(Re order (will not trigger notification to Pharmacy)) Drospirenone (Slynd) 4 MG tablet Take 1 tablet by mouth Once per day. 28 tablet 04/17/20 25 025 Discontinued(Re order (will not trigger notification to Pharmacy)) Drospirenone (Slynd) 4 MG tabletIndicatio ns:Menorrhagia with regular cycle Take 1 tablet by mouth Once per day. 84 tablet 07/03/20 25 025 Discontinued(Re order (will not trigger notification to Pharmacy)) benzoyl peroxide 10 % gelIndications: Acne vulgaris Apply topically Once per day. 90 g 1 07/19/20 25 025 Discontinued Drospirenone (Slynd) 4 MG tabletIndicatio ns:Menorrhagia with regular cycle Take 1 tablet by mouth Once per day. 84 tablet 3 07/19/20 25 025 Discontinued ketoconazole (NIZOral) 2 % shampooIndicati ons:Seborrheic dermatitis of scalp Apply to scalp 2 times a week. 120 mL 07/19/20 25 025 Discontinued Active Problems Problem Noted Date Diagnosed Date Bloating 10/13/2024 Assessment & Plan (10/14/2024 1:04 PM EST): Pt has been avoiding bread, celiacs panel ordered Iron deficiency anemia 08/09/2024 Assessment & Plan (07/19/2025 2:21 PM EDT): - Order blood work to assess anemia status and determine if it is contributing to fatigue. -continue on oral iron supplement -referral information for [facility] hematology given to pt with instructions for scheduling appt. Assessment & Plan (10/14/2024 1:04 PM EST): Hx of GI bleed and menorrhagia secondary to fibroid uterus, Referral to clamp operator for potential management options Iron rx changed [...] GERD (gastroesophageal reflux disease) Assessment & Plan (07/19/2025 2:21 PM EDT): - Initiate a new referral for gastroenterology due to ongoing reflux symptoms, with scheduling preference at [facility] for insurance compatibility. - Refill two previously prescribed stomach medications, including Protonix to be taken in the morning on an empty stomach to suppress gastric acid and alleviate reflux symptoms. - Prescribe nausea medication to be taken as needed for episodes of nausea, not required for daily use. Orders: Referral to Gastroenterology; Future Assessment & Plan (10/14/2024 1:03 PM EST): [...] findings and potential management options Referred to clamp operator Assessment & Plan (08/11/2024 5:31 PM EDT): Pt educated about the possibility of menstrual suppression or lightening of periods as a means to treat heavy menstrual bleeding, contributing to anemia Will revisit this possibility in followup Resolved Problems Problem Noted Date Diagnosed Date Resolved Date Gastritis 08/09/2024 08/09/2024 Encounters Date Type Department Care Team Description 07/19/2025 1:00 PM EDT Office Visit [facility] [address] [place] [address] Rama Lieberman CNP Encounter for physical examination (Primary Dx); Gastroesophageal reflux disease with esophagitis, unspecified whether hemorrhage; Acne vulgaris; Menorrhagia with regular cycle; Seborrheic dermatitis of scalp; Iron deficiency anemia, unspecified iron deficiency anemia type; Gastroesophageal reflux disease, unspecified whether esophagitis present 07/19/2025 Telephone [facility] [address] [place] [phone] Rama Lieberman CNP Change PCP 07/19/2025 Travel 07/12/2025 Patient Outreach [facility] [address] [place] [phone] Rama Lieberman CNP Care Coordination ([facility] Lm Walker, Transportation assistance) 07/12/2025 Patient Outreach [facility] [address] [place] [phone] Rama Lieberman CNP Pre-visit Planning (SDOH screening positive and Tobacco screening negative) 07/10/2025 Telephone [facility] [address] [place] [address] Rama Lieberman CNP 07/10/2025 Telephone [facility] [address] [place] [address] Rama Lieberman CNP chart prep 07/02/2025 Refill [facility] [address] [place] [phone] Mirtha Marcos CNM 07/02/2025 Telephone [facility] [address] [place] [phone] Rama Lieberman CNP Med Refill (Pt requesting med refill for slynd send med to [facility] pharmacy ) 06/20/2025 Refill [facility] [address] [place] [phone] Betty Vasquez MD Gastro-esophageal reflux disease without esophagitis 05/07/[address] [address] Rama Lieberman CNP 05/04/2025 2:00 PM EDT Office Visit [address] [phone] Rama Lieberman CNP Neuropathy (Primary Dx); Menorrhagia with regular cycle; Fibroids; Cervical mass; Abnormal cervical Papanicolaou smear, unspecified abnormal pap finding; Iron deficiency 05/04/2025 Orders Only [facility] [address] [place] [phone] Rita Hathaway NP 05/04/[address] [address] Rama Lieberman CNP PT1 (Patient requesting pt1 from her house [address] [address]/[facility] [address] to [facility] when patient is done with appointment will need transportation back home , patient does not need wheelchair manual or electric , escort . How often 5 times. //Also pt will need transportation from her house [address] [facility] [address]/[facility] [address] [place] [address] . ); PT1-Not Eligible 05/04/2025 Travel 05/03/[address] [address] Rama Lieberman CNP Chart Prep 04/27/2025 Patient Outreach [facility] [address] [place], [place] [phone] Rama Lieberman CNP Pre-visit Planning ([facility] unable to reach [facility]) 04/19/2025 Results Follow-Up [facility] [address] [place] [phone] Mirtha Marcos, ZEHRA POCT urinalysis dipstick manually resulted, Culture, Urine, Routine from Last 3 Months Social History Tobacco [...] Q2 Not on file 09/15/2024 Comments No Intention Date Recorded No desire to become (finding) 0 04/17/2025 Sex and Gender Information Value Date Recorded [...] Mass Index 25.31 07/19/2025 1:34 PM EDT Plan of Treatment Upcoming Encounters Date Type Department Care Team (Late st Contact Info) Description 07/23/2025 2:00 PM EDT Office Visit [facility] [address] [place], [place] [phone] Mirtha Marcos, CNM [address] [place], [place] [phone] Health Maintenance Due Date Last Done Comments HPV Vaccines (1 - 3-dose series) 2000 Hepatitis C Screening 2003 Hepatitis B Vaccines (1 of 3 - 19+ 3-dose series) 2004 Colposcopy 12/05/2024 COVID-19 Vaccine ( - 2023-2 5 season) 2025 Influenza Vaccine (#1) 2025 Depression Screening 09/15/2025 09/15/2024, 09/15/2024 DTaP/Tdap/Td Vaccines (1 - Tdap) 09/18/2025 Postponed from 09/17 (Supply/Drug Shortage) Alcohol/Substance Use Screening 10/13/2025 10/13/2024 Family Planning (PISQ) 04/17/2026 04/17/2025 Disability Screening 05/04/2026 05/04/2025 Tobacco Screening 05/04/2026 05/04/2025 SDOH Screening 07/12/2026 07/12/2025 Pap Smear 12/04/2027 12/04/2024 Cervical Cancer Screening 12/04/2029 HPV/Cotest 12/04/2029 12/04/2024 Zoster Vaccines (1 of 2) 2035 RSV Patients and Patients Aged 60 years or older (1 - 1-dose 75+ series) 2060 HIV Screening Completed 05/04/2025 HIB Vaccines Aged Out No longer eligi ble based on patient's age to complete this topic Hepatitis A Vaccines Aged Out No long er eligible based on patient's age to complete this topic IPV Vaccines Aged Out No longer eligi ble based on patient's age to complete this topic Meningococcal B Vaccine Aged Out No l onger eligible based on patient's age to complete this topic Meningococcal Vaccine Aged Out No jack shane eligible based on patient's age to complete this topic Pneumococcal Vaccine: Pediatrics (0 to 5 Years) and At-Risk Patients (6 to 49) Years Aged Out No longer eligible b ased [...] 2:09 PM EDT Encounter for physical examination HEMOGLOBIN A1C Routine 07/19/2025 2:09 PM EDT Neuropathy COMPLETE BLOOD COUNT MAN DIF Routine 05/04/2025 2:51 PM EDT COMPREHENSIVE METABOLIC PANEL Routine 05/04/2025 2:51 PM EDT Iron deficiency anemia, unspecified iron deficiency anemia type HIV 1/2 ANTIGEN/ANTIBODY, FOURTH GENERATION W/RFL Routine 05/04/2025 2:51 PM EDT Iron deficiency anemia, unspecified iron deficiency anemia type C-REACTIVE PROTEIN Routine 05/04/2025 2: 51 PM EDT Iron deficiency anemia, unspecified iron deficiency anemia type SED RATE BY MODIFIED WESTERGREN Routine 05/04/2025 2:51 PM EDT Iron deficiency anemia, unspecified iron deficiency anemia type HPV DNA, LOW/HIGH RISK Routine 12:03 PM EST PAP SMEAR Routine 12/04/2024 12:03 PM EST Routine cervical smear from Last 3 Months or Most Recently Relevant to Health Maintenance Results * (ABNORMAL) CBC auto differential (07/19/2025 2:09 PM EDT) White Blood Count 4.4(L) 4.8 - 10.8 X10*3/uL [facility] Red Blood Count 4.13(L) 4.20 - 5.50 X10*6/uL [facility] Hemoglobin 11.9(L) 12.0 - 16.0 g/dl [facility] Hematocrit 35.9(L) 37.0 - 47.0 % [facility] Mean Corpuscular Volume 86.9 80.0 - 98.0 fL [facility] Mean Corpuscular Hemoglobin 28.8 27.0 - 33.0 pg [facility] Mean Corpuscular HGB Conc 33.1 31.0 - 35.0 g/dl [facility] Red Cell Distribution Width 14.6 11.0 - 16.0 % [facility] Platelet Count 265 160 - 400 X10*3/uL [facility] Mean Platelet Volume 10.7 9.4 - 12.3 fL [facility] Neutrophils Percent Auto 50.1 45 - 73 % [facility] Imm Gran Pct Auto 0.2 0.0 - 0.4 % [facility] Lymphocytes Percent Auto 37.4 20 - 40 % [facility] Monocytes Percent Auto 9.3 2 - 11 % [facility] Eosinophils Percent Auto 2.5 0 - 4 % [facility] Basophils Percent Auto 0.5 0 - 2 % [facility] NRBC Pct Auto 0.0 0.0 - 0.2 /100WBC [facility] Neutrophils Absolute Auto 2.2 2.0 - 8.3 x10*3/uL [facility] Imm Gran Abs Auto 0.01 0.00 - 0.03 X10*3/uL [facility] Lymphocytes Absolute Auto 1.6 1.2 - 4.9 X10*3/uL [facility] Monocytes Absolute Auto 0.4 0.1 - 1.2 X10*3/uL [facility] Eosinophils Absolute Auto 0.1 0.0 - 0.4 X10*3/uL [facility] Basophils Absolute Auto 0.0 0.0 - 0.2 X10*3/uL [facility] NRBC Abs Auto 0.000 0.0 - 0.012 X10*3/uL [facility] Blood Venous blood specimen / Unknown 07/19/2025 2:09 PM EDT 07/19/2025 5:29 PM EDT [facility] LAB BLOOD ORDERABLES Oanh l Result Performing Organization Address [facility] [place] [facility] Co de Phone Number [facility] [address] [place] [address] [phone] * Hemoglobin A1c (07/19/2025 2:09 PM EDT) Hemoglobin A1c 5.6 <6.0 % [facility] Comment:Hemoglobin A1C Refer ence Range Adults: 4.8 - 6.0 % Non diabetic: < 6.0 % Goal: < 7.0 %Additional Action Suggested: > 8.0 %Note: Hemoglobin A1c results are invalid for patients with abnormal amounts of HbF. Blood transfusions may impact the HbA1c concentration in the patient sample. Estimated Average Glucose 114 mg/dL [facility] Comment:eAG = Estimated ave rage glucose which is %A1C expressed asaverage glucose, using the formula of the J9B-QuulryqFovsqki Glucose study (ADAG), Diabetes Care, Vol.31,#8,Jun. 2007 Blood Venous blood specimen / Unknown 07/19/2025 2:09 PM EDT 07/19/2025 5:29 PM EDT [facility] LAB BLOOD ORDERABLES Oanh l Result Performing Organization Address [facility] [place] [facility] Co de Phone Number [facility] [address] [place] [phone] * (ABNORMAL) Complete Blood Count Manual Diff (05/04/2025 2:51 PM EDT) White Blood Count 3.6(L) 4.8 - 10.8 X10*3/uL [facility] Red Blood Count 3.91(L) 4.20 - 5.50 X10*6/uL [facility] Hemoglobin 9.7(L) 12.0 - 16.0 g/dl [facility] Hematocrit 31.5(L) 37.0 - 47.0 % [facility] Mean Corpuscular Volume 80.6 80.0 - 98.0 fL [facility] Mean Corpuscular Hemoglobin 24.8(L) 27.0 - 33.0 pg [facility] Mean Corpuscular HGB Conc 30.8(L) 31.0 - 35.0 g/dl [facility] Platelet Count 243 160 - 400 X10*3/uL [facility] Mean Platelet Volume 11.4 9.4 - 12.3 fL [facility] NRBC Pct Auto 0.0 0.0 - 0.2 /100WBC [facility] NRBC Abs Auto 0.000 0.0 - 0.012 X10*3/uL [facility] Neutrophils % Manual 62 45 - 73 % [facility] Band Neutrophils Percent 0(L) 3 - 5 % [facility] Lymphocytes Percent Manual 31 20 - 40 % [facility] Monocytes Percent Manual 6 2 - 11 % [facility] EOSINOPHILS % MANUAL 1 0 - 4 % [facility] NEUTROPHILS ABSOLUTE MANUAL 2.2 2.0 - 8.3 X10*3/uL [facility] LYMPHOCYTES ABSOLUTE MANUAL 1.1(L) 1.2 - 4.9 X10*3/uL [facility] MONOCYTES ABSOLUTE MANUAL 0.2 0.1 - 1.2 X10*3/uL [facility] Platelet Estimate NORMAL NORMAL [facility] Platelet Morphology Comment NORMAL [facility] RBC Morphology NOTED [facility] Ovalocytes 1+ (5-14) /OIF [facility] Wilcox Cells 1+ (0-2) /OIF [facility] Schistocytes 1+ (0-2) /F [facility] 05/04/2025 2:51 PM EDT 05/04/2025 4:24 PM EDT Rita Hathaway SEW OUT OPERATOR LAB BLOOD ORDERABLES Final Resul t Performing Organization Address [facility] [place] [facility] Co de Phone Number [facility] [address] [place] [phone] * HIV-1/2 Antigen and Antibodies, Fourth Generation, with Reflexes (05/04/2025 2:51 PM EDT) HIV AB/AG Nonreactive Nonreactive [facility] Comment:HIV-1 p24 Ag and/or HIV-1/HIV-2 Ab not detected.A test result that is nonreactive does not exclude thepossibility of exposure to or infection with HIV-1 and/orHIV-2. Nonreactive results in this assay for individualswith prior exposure to HIV-1 and/or HIV-2 may be due toantigen and antibody levels that are below the limit ofdetection of this assay.The [employer]Ming[employer]ian HIV Ag/Ab Combo assay result andsupplemental assay results should be interpreted inconjunction with the patient's clinical presentation,history and other laboratory results. If the results areinconsistent with clinical evidence, additional testing issuggested to confirm the result. Blood Venous blood specimen / Unknown 05/04/2025 2:51 PM EDT 05/04/2025 4:24 PM EDT Rita Hathaway NP LAB BLOOD ORDERABLES Final Resul t Performing Organization Address City/[facility]/ZIP Co de Phone Number [facility] [address] [place] [phone] * Sed Rate by Modified Ccee (05/04/2025 2:51 PM EDT) Erythrocyte Sedimentation Rate 7 0 - 20 MM/HR [facility] Comment:Patients with polycy themia and many hemoglobin abnormalitiesmay have depressed sed rates whereas patients with anemiamay have elevated sed rates. Blood Venous blood specimen / Unknown 05/04/2025 2:51 PM EDT 05/04/2025 4:24 PM EDT Rita Hathaway SEW OUT OPERATOR LAB BLOOD ORDERABLES Final Resul t Performing Organization Address [facility] [place] [facility] Co de Phone Number [facility] [address] [place] [phone] * C-reactive Protein (05/04/2025 2:51 PM EDT) C Reactive Protein <0.04 < or = 0.50 mg/dL [facility] Blood Venous blood specimen / Unknown 05/04/2025 2:51 PM EDT 05/04/2025 4:24 PM EDT us Rita Hathaway SEW OUT OPERATOR LAB BLOOD ORDERABLES Final Resul t Performing Organization Address [facility] [place] [facility] de Phone Number [facility] [address] [place] [phone] * (ABNORMAL) Comprehensive Metabolic Panel (05/04/2025 2:51 PM EDT) Sodium 140 135 - 145 mmol/L [facility] Potassium 3.7 3.3 - 5.1 mmol/L [facility] Chloride 111(H) 96 - 108 mmol/L [facility] Carbon Dioxide 24 22 - 29 mmol/L [facility] Anion Gap 9(L) 12 - 20 [facility] Urea Nitrogen (BUN) 9 9 - 16 mg/dL [facility] Creatinine, Serum 0.49(L) 0.5 - 1.4 mg/dL [facility] Estimated Glomerular Filt Rate >60 [facility] Comment:Chronic Kidney Disea se: Estimated GFR < 60 mL/min/1.98c9Oicfml Kidney Disease: Estimated GFR < 15 mL/min/1.73m2 Glucose 87 60 - 115 mg/dL [facility] Calcium 8.8 8.4 - 10.2 mg/dL [facility] Bilirubin, Total 0.2 0.0 - 1.0 mg/dL [facility] Aspartate Amino Transferase 24 5 - 31 U/L [facility] Alanine Aminotransferase 14 0 - 31 U/L [facility] Total Protein 6.9 6.5 - 8.0 g/dL [facility] Albumin Level 4.2 3.5 - 5.0 g/dL [facility] Alkaline Phosphatase 79 39 - 117 U/L [facility] Blood Venous blood specimen / Unknown 05/04/2025 2:51 PM EDT 05/04/2025 4:24 PM EDT us Rita Hathaway NP LAB BLOOD ORDERABLES Final Resul t [facility] [address] [place] [phone] * (ABNORMAL) HPV DNA, Low/High Risk (12/04/2024 12:03 PM EST) HPV High Risk Positive(A) Negative [facility] HPV Genotype 16 Negative Negative [facility] HPV Genotype 18 Negative Negative [facility] Comment:HPV testing performe d at [facility] (CLIA#[id number]), [address] [place] [address].Testing for HPV was performed using the Giselle BARBER 6800system. The presence of HPV in the female genital tract isassociated with a number of diseases, including cervicalcarcinoma. The HPV DNA high risk pool tests for HPV 31, 33,35, 39, 45, 51, 52, 56, 58, 59, 66 and 68. The testing forHPV 16 and 18 genotypes has also been performed. A positiveresult indicates detection of nucleic acid sequences fromone or more subtypes, whereas a negative result indicatessuch sequences were not detected. 12/04/2024 12:0 3 PM EST 12/05/2024 9:46 AM EST us Mirtha Marcos CNM LAB BLOOD ORDERABLES Oanh aguilar Result [facility] [address] [place] [address] [phone] * Pap Smear (12/04/2024 12:03 PM EST) Swab Cervix uteri structure / Unknown 12/04/2024 12:03 PM EST 12/05/2024 9:25 AM EST Narrative [facility] - 12/08/2024 1:30 PM EST ----- ------- Name: PattyNatalia Douglas Age/Sex: 39/F : 1985 Unit#: [id number] Attend Dr: MIRTHA MARCOS CNM Re12/04/24 Status: DEP [facility] ----- ------- SPEC : [id number] RECD: 12/05/24 STATUS: FREDY MITCHELL NUM: [id number] RIO: 12/04/24-[address]: MIRTHA MARCOS CNM ENTERED: 12/05/24 SP TYPE: Pap Smr OTHR DR: ORDERED: Pap Smear, PAP path review Interpretation General Category: Epithelial cell abnormality. Adequacy: Endocervical component present. Interpretation: Atypical squamous cells of undetermined significance. HPV High Risk: Positive HPV Genotyping 16: Negative HPV Genotyping 18: Negative Clinical Information LMP: 11/19/24 Previous PAP test: Other surgery: Other history: Material Received ThinPrep-Cervical ----- ------- Signed (signature on file) Clarke Tirado MD 12/08/24 1330 ----- ------- END OF REPORT Mirtha Marcos [facility] CYTOLOGY ORDERABLES F inal Result [facility] [address] [place] [phone] from Last 3 Months or Most Recently Relevant to Health Maintenance Insurance [employer] Care Teams Revenue Analyst Relationship Specialty Start Date End Date Rama Lieberman CNP [address] [place] [address] [phone] PCP - General Family Medicine 10/24/24
--- OUTSIDE RECORDS SUMMARY | 2025-07-19 17:55 | XMS_ITS | Encounter Summary ---
Author Organization [employer] Address [address] [place] [address] Care Team Providers Care Boomswing Operator Name Role Phone Rama Lieberman CNP Primary Care Provider [phone] Reason for Visit * Reason Onset Date Comments Change PCP 07/19/2025 Encounter Details Date Type Department Care Team ([facility] st Contact Info) Description 07/19/2025 Telephone C [facility] [address] [place] [address] Rama Lieberman CNP [address] [place] [address] Change PCP Social History Tobacco Use Types Packs/Day Years [...] AM EDT documented as of this encounter Miscellaneous Notes * Telephone Encounter - Franky Vila - 07/19/2025 1:16 PM EDT Pt requesting transfer patient appt back to [place] states it's too difficult for her to get to [facility] location from a bus. documented in this encounter Plan of Treatment Upcoming Encounters Date Type Department Care Team (Late st Contact Info) Description 07/23/2025 2:00 PM EDT Office Visit [facility] [address] [place] [address] [facility] [place] [facility] [address] [place] [address] documented as of this encounter Visit Diagnoses Not on filedocumented in this encounter Additional Health Concerns Assessment Noted Time PHQ-9 Depression Total Score: 5 09/15/20 24 12:05 PM EST documented as of this encounter Care Teams Boomswing Operator Relationship Specialty Start Date End Date Rama Lieberman CNP [address] [place] [address] PCP - General Family Medicine 10/24/24 documented as of this encounter
[2025-07-19 18:16] LABS: Alanine Aminotransferase 15 U/L (0-31); Albumin Level 4.2 g/dL (3.5-5.0); Alkaline Phosphatase 82 U/L (39-117); Anion Gap 8 (12-20); Aspartate Amino Transferase 21 U/L (5-31); Blood Urea Nitrogen 12 mg/dL (9-16); Calcium 8.8 mg/dL (8.4-10.2); Carbon Dioxide 24 mmol/L (22-29); Chloride 112 mmol/L (96-108); Estimated Glomerular Filt Rate > 60; Ferritin 7 ng/mL (10-122); Iron 63 mcg/dL (30-160); Percent Iron Saturation 18 % (15-50); Potassium 4.1 mmol/L (3.3-5.1); Sodium 140 mmol/L (135-145); Total Iron Binding Capacity 341 mcg/dL (228-428); Total Protein 7.4 g/dL (6.5-8.0); Unsaturated Iron Binding 278 ug/dL
[2025-07-19 18:31] LABS: Folate 11.1 ng/mL (> or = 4.0); Vitamin B12 347 pg/mL (200-900)
[2025-07-20 08:38] LABS: ~HepC Num1 0.13 S/CO (0.00-0.79); ~Hepatitis C Antibody Nonreactive (Nonreactive)
== END 2025-07-19 14:08 | disposition home or self-care (01) ==
LOC: HO.CHCLDS 14:07
DX: Z00.00 Encounter for general adult medical examination without abnormal findings (principal); Z11.59 Encounter for screening for other viral diseases; E61.1 Iron deficiency; G62.9 Polyneuropathy, unspecified
CPT/HCPCS: 36415; 80053; 82607; 82728; 82746; 83036; 83540; 85025; 86803